=== PATIENT | female | born 1965 | race Caucasian/White ===

== ENCOUNTER 2017-01-15 08:13 | Emergency (ER) | payer MEDICAID, OTHER ==
[~2017-01-15] VITALS: Ht 157.5 cm; Wt 74.5 kg
[~2017-01-15 08:13] MED LIST: GABA-529 PO; HYDR-3965 PO; LIDOCAINE HCL/PF 2% 5 ML VIAL IM ONE; PROPOFOL 1% 20 ML VIAL IVP ONE
[2017-01-15] MEDS ORDERED: PROP10 PO (08:18)
[2017-01-15] MEDS ORDERED: PALI39DI IM (08:18)
[2017-01-15] MEDS ORDERED: GLUCAGON,HUMAN RECOMBINANT 1 MG VIAL IVP ONE ×2 (09:00→09:15)
[2017-01-15] MEDS ORDERED: ONDANSETRON HCL 4 MG/2 ML VIAL IVP ONE (09:15)
[2017-01-15 10:17] LABS: BASOPHILS % (AUTO) 0.5 % (0.0-2.0); EOSINOPHILS % (AUTO) 1.5 % (1.0-6.0); HEMATOCRIT 43.3 % (36-46); HEMOGLOBIN 14.6 g/dL (12.0-16.0); LYMPHOCYTES # (AUTO) 2.1 K/uL (1.0-4.8); LYMPHOCYTES % (AUTO) 21.1 % (22.0-44.0); MEAN CORPUSCULAR HGB CONC 33.7 G/dL (31.0-37.0); MEAN CORPUSCULAR VOLUME 86 fL (80-100); MONOCYTES # (AUTO) 0.6 K/uL (0.1-1.0); MONOCYTES % (AUTO) 6.3 % (2.0-9.0); NEUTROPHILS % (AUTO) 70.6 % (40.0-70.0); PLATELET COUNT (AUTO) 275 K/uL (150-450); RED BLOOD CELL COUNT(AUTO) 5.03 MIL/uL (4.00-5.20); RED CELL DISTRIBUTION WIDTH 14.1 % (11.5-14.5); WHITE BLOOD COUNT (AUTO) 9.9 K/uL (4.5-11.0)
[2017-01-15 10:36] LABS: PROTHROMBIN TIME 10.7 SEC (9.4-11.6)
[2017-01-15 11:41] LABS: ANION GAP 54 mmol/L (8-16); CARBON DIOXIDE 19 mmol/L (22-29); CHLORIDE 86 mmol/L (98-107); CREATININE 0.64 mg/dL (0.60-1.30); GLOMERULAR FILTR. RATE CALC > 60 mL/min (>60); POTASSIUM 3.4 mmol/L (3.5-5.1); SODIUM SERUM 159 mmol/L (136-145); UREA NITROGEN, BLOOD 8 mg/dL (7-18)
[2017-01-15 11:47] LABS: ALANINE AMINOTRANSFERASE 21 U/L (12-78); ALBUMIN 3.1 g/dL (3.4-5.0); ASPARTATE AMINOTRANSFERASE 16 U/L (15-37); BILIRUBIN,TOTAL 0.5 mg/dL (0.1-1.0); TOTAL PROTEIN, SERUM 6.5 g/dL (6.4-8.2)
[2017-01-15 12:27] LABS: ORIG DRAW (USER) PTCARESTAF
[2017-01-15] MEDS ORDERED: SODIUM CHLORIDE 0.9% 1,000 ML IV ONE (12:45)
[2017-01-15 16:27] VITALS: BP 110/69
== END 2017-01-15 17:14 | disposition home or self-care (01) ==
LOC: EMS 08:14
DX: T18.128A Food in esophagus causing other injury, initial encounter (principal); R79.1 Abnormal coagulation profile; G89.29 Other chronic pain; M54.9 Dorsalgia, unspecified; F17.210 Nicotine dependence, cigarettes, uncomplicated; I10 Essential (primary) hypertension; X58.XXXA Exposure to other specified factors, initial encounter; Y93.89 Activity, other specified; Y92.89 Other specified places as the place of occurrence of the external cause; Y99.9 Unspecified external cause status
CPT/HCPCS: 36415; 43247; 70490; 80053; 81025; 85025; 85610; 85730; 88305; 88312; 96361; 96374; 96375; 99285; C1769; J1610; J2405; J2704; J3490; Z7610